=== PATIENT | female | born 1955 | race Caucasian/White ===

== ENCOUNTER 2017-01-23 14:07 | Emergency (ER) | payer OTHER ==
[~2017-01-23] VITALS: Wt 84.8 kg
[~2017-01-23 14:07] MED LIST: ENABLEX7.5 MG PO; HYDROCODONE BIT1 T11 PO; MOTRIN800 MG PO; VICODIN ES 7501 TAB PO
[2017-01-23] MEDS ORDERED: VESICARE5 MG PO (14:40)
[2017-01-23 15:34] LABS: BILIRUBIN NEGATIVE (NEGATIVE); BLOOD NEGATIVE (NEGATIVE); CLARITY SL CLOUDY (CLEAR); COLOR YELLOW (YELLOW); GLUCOSE NEGATIVE (NEGATIVE); KETONE NEGATIVE (NEGATIVE); LEUKO ESTERASE NEGATIVE (NEGATIVE); NITRITE POSITIVE (NEGATIVE); PROTEIN NEGATIVE (NEGATIVE); SPECIFIC GRAVITY 1.025 (1.005-1.030); UROBILINOGEN 0.2 E.U./dl (0.2-1.0)
[2017-01-23 15:37] LABS: BASO # 0.1 10*3/uL (0.0-0.1); BASO % 0.6 % (0.0-1.0); EOS # 0.2 10*3/uL (0.0-0.4); EOS % 1.4 % (1.0-4.0); HEMATOCRIT 38.3 % (37.0-47.0); LYMPH # 1.7 10*3/uL (1.3-4.4); LYMPH % 14.3 % (27.0-41.0); MEAN CELL VOLUME 81.5 fl (81.0-99.0); MEAN CORPUSCULAR HGB 25.5 pg (27.0-31.0); MEAN CORPUSCULAR HGB CONC 31.3 g/dl (33.0-37.0); MEAN PLATELET VOLUME 9.6 fl (9.6-12.3); MONO # 0.6 10*3/uL (0.1-1.0); MONO % 5.3 % (3.0-9.0); NEUT % 78.1 % (47.0-73.0); PLATELET COUNT AUTOMATED 344 10*3/uL (130-400); RED CELL DISTRI WIDTH 16.2 % (0-14.5); WHITE BLOOD COUNT 11.6 10*3/uL (4.8-10.8)
[2017-01-23 15:42] LABS: BACTERIA 3+; EPITHELIAL CELLS 15-20; RBC 0-2 rbc/hpf (0-2); URINE REFLEX COMMENT YES (NO)
[2017-01-23] MEDS ORDERED: CEPHALEXIN500 M1 PO (16:18)
[2017-01-23] MEDS ORDERED: HYDROCODONE BIT1 T11 PO (16:18)
[2017-01-23] MEDS ORDERED: BACTRIM DS 8001 TA1 PO (16:18)
== END 2017-01-23 16:37 | disposition home or self-care (01) ==
LOC: ED 14:07
PROVIDERS: Physician Assistant
DX: N76.2 Acute vulvitis (principal); N30.01 Acute cystitis with hematuria; Z90.49 Acquired absence of other specified parts of digestive tract

== ENCOUNTER → 2017-03-13 | Outpatient (CLI) | payer OTHER ==
[~2017-03-13] MED LIST changes: +BACTRIM DS 8001 TA1 PO; +CEPHALEXIN500 M1 PO; +VESICARE5 MG PO
== END | disposition home or self-care (01) ==
LOC: RAD 10:31
DX: Z13.820 Encounter for screening for osteoporosis (principal); N95.9 Unspecified menopausal and perimenopausal disorder; Z78.0 Asymptomatic menopausal state

== ENCOUNTER → 2017-06-14 | Day surgery (SDC) | payer OTHER ==
[~2017-06-14] VITALS: Ht 162.5 cm; Wt 90.7 kg
[~2017-06-14] MED LIST changes: +SIMVASTATIN10 MG PO
--- NOTE | ~2017-06-14 | O ---
[place], [place] OPERATIVE NOTE NAME: JEFFERY LAO UNIT #: [id number] ROOM: DOCTOR: MILAGROS YOUNGER MD BIRTHDATE: [birth year] DOS: INDICATION: A 62-year-old patient who presented with chief complaint of colonic screening, undergoing investigation. ALLERGIES: No known medication. FAMILY HISTORY: Noncontributory. PAST SURGICAL HISTORY: Cholecystectomy. PAST MEDICAL HISTORY: Hyperlipidemia, hypertension. SOCIAL HISTORY: Nonsmoker, nonalcohol consumer. PROCEDURE: Todays' procedure part of investigation is colonoscopy plus snare polypectomy. PREMEDICATION: Versed and Diprivan. SCOPE: Olympus forward-viewing colonoscope 10L video. REPORT: After putting the patient in the left lateral position and after application of lubricant to the scope, the scope was introduced; thereafter, under direct visualization, advanced through the length of colon without difficulty. Tortuosity of left colon was appreciated, diverticulosis was noticed. Upon polypoid lesion, rectal pouch approximately 10 cm with a snare was polypectomized, site is not bleeding. Photographic series obtained. The patient extubated, tolerated procedure well. IMPRESSION: Rectal pouch peduncular polyp, status post snare polypectomy, diverticulosis of sigmoid colon, tortuosity of sigmoid. PLAN AND DISCUSSION: High fiber diet. ACTIVITY: Ad cathy. FOLLOWUP: Routinely with you in office, p.r.n. visit with us in [facility]. I thank you very much indeed for your kind referral. [place], [place] OPERATIVE NOTE NAME: JEFFERY LAO UNIT #: [id number] ROOM: DOCTOR: MILAGROS YOUNGER MD BIRTHDATE: [birth year] MILAGROS YOUNGER MD CM:OPRECORD:OPERATIVE NOTE [phone] YOU YOUNGER MD 06/14/17 1056 interface
[2017-06-14 08:00] VITALS: BP 132/81
[2017-06-14 08:55] VITALS: BP 114/60
[2017-06-14 09:10] VITALS: BP 129/63
[2017-06-14 09:25] VITALS: BP 128/72
== END | disposition home or self-care (01) ==
LOC: SDC 06-08 10:15
DX: Z12.11 Encounter for screening for malignant neoplasm of colon (principal); E78.5 Hyperlipidemia, unspecified; I10 Essential (primary) hypertension; D12.8 Benign neoplasm of rectum; K57.30 Diverticulosis of large intestine without perforation or abscess without bleeding; K31.89 Other diseases of stomach and duodenum; E78.00 Pure hypercholesterolemia, unspecified; Z90.49 Acquired absence of other specified parts of digestive tract; Z98.890 Other specified postprocedural states; Z80.9 Family history of malignant neoplasm, unspecified

== ENCOUNTER → 2017-06-16 | Outpatient (CLI) | payer OTHER | END | disposition home or self-care (01) | LOC: CT 08:34 | DX: N26.1 Atrophy of kidney (terminal) (principal); K83.8 Other specified diseases of biliary tract; M41.9 Scoliosis, unspecified; Z90.49 Acquired absence of other specified parts of digestive tract ==

== ENCOUNTER → 2020-01-01 | Outpatient (CLI) | payer MEDICARE | END | disposition home or self-care (01) | LOC: MRI 08:15 | DX: M47.896 Other spondylosis, lumbar region (principal); M48.061 Spinal stenosis, lumbar region without neurogenic claudication; M41.86 Other forms of scoliosis, lumbar region ==

== ENCOUNTER → 2020-01-15 | Outpatient (CLI) | payer MEDICARE | END | disposition home or self-care (01) | LOC: RAD 07:47 | DX: M85.89 Other specified disorders of bone density and structure, multiple sites (principal); R06.02 Shortness of breath; Z78.0 Asymptomatic menopausal state ==

== ENCOUNTER → 2020-12-04 | Outpatient (CLI) | payer MEDICARE ==
[2020-12-04 09:24] LABS: BASO # 0.1 10*3/uL (0.0-0.1); BASO % 0.8 % (0.0-1.0); EOS # 0.1 10*3/uL (0.0-0.4); EOS % 1.8 % (1.0-4.0); HEMATOCRIT 43.5 % (37.0-47.0); LYMPH # 2.4 10*3/uL (1.3-4.4); LYMPH % 36.5 % (27.0-41.0); MEAN CELL VOLUME 83.7 fl (81.0-99.0); MEAN CORPUSCULAR HGB 25.2 pg (27.0-31.0); MEAN CORPUSCULAR HGB CONC 30.1 g/dl (33.0-37.0); MEAN PLATELET VOLUME 9.9 fl (9.6-12.3); MONO # 0.4 10*3/uL (0.1-1.0); MONO % 5.7 % (3.0-9.0); NEUT # 3.6 10*3/uL (2.3-7.9); NEUT % 54.9 % (47.0-73.0); PLATELET COUNT AUTOMATED 303 10*3/uL (130-400); WHITE BLOOD COUNT 6.5 10*3/uL (4.8-10.8)
[2020-12-04 09:41] LABS: ALBUMIN 3.7 gm/dl (3.1-4.5); ALKALINE PHOSPHATASE 155 U/L (45-117); BUN 18 mg/dl (7-24); CHLORIDE 107 mmol/L (98-107); CHOLESTEROL 213 mg/dL (<200); CREATININE 1.01 mg/dL (0.55-1.02); HDL CHOLESTEROL 48 mg/dl (40-60); LDL CHOLESTEROL 117 mg/dL (9-159); POTASSIUM 4.1 mmol/L (3.5-5.1); SGOT/AST 19 IU/L (3-35); SGPT/ALT 29 U/L (12-78); SODIUM 139 mmol/L (136-145); TRIGLYCERIDES 240 mg/dl (<150); VLDL CHOLESTEROL 48 mg/dL (6-40)
[2020-12-04 09:42] LABS: FREE T4 1.11 ng/dl (0.76-1.46)
[2020-12-04 10:55] LABS: VITAMIN D, 25-HYDROXY 65.4 ng/mL (30-100)
== END | disposition home or self-care (01) ==
LOC: LAB 08:49
PROVIDERS: ATTEND Internal Medicine
DX: Z13.89 Encounter for screening for other disorder (principal); N32.81 Overactive bladder; E78.2 Mixed hyperlipidemia; R79.82 Elevated C-reactive protein (CRP); E55.9 Vitamin D deficiency, unspecified; R74.8 Abnormal levels of other serum enzymes; R53.81 Other malaise

== ENCOUNTER → 2022-12-13 | Outpatient (CLI) | payer MEDICARE ==
[2022-12-13 10:37] LABS: BASO # 0.1 10*3/uL (0.0-0.1); BASO % 0.9 % (0.0-1.0); EOS # 0.1 10*3/uL (0.0-0.4); EOS % 1.2 % (1.0-4.0); HEMATOCRIT 44.8 % (37.0-47.0); LYMPH # 1.8 10*3/uL (1.3-4.4); MEAN CELL VOLUME 83.6 fl (81.0-99.0); MEAN CORPUSCULAR HGB 25.6 pg (27.0-31.0); MEAN CORPUSCULAR HGB CONC 30.6 g/dl (33.0-37.0); MEAN PLATELET VOLUME 9.8 fl (9.6-12.3); MONO # 0.4 10*3/uL (0.1-1.0); MONO % 6.3 % (3.0-9.0); NEUT # 4.5 10*3/uL (2.3-7.9); NEUT % 65.3 % (47.0-73.0); PLATELET COUNT AUTOMATED 291 10*3/uL (130-400); RED BLOOD COUNT 5.36 10*6/uL (4.10-5.10); RED CELL DISTRI WIDTH 15.4 % (0-14.5); WHITE BLOOD COUNT 6.9 10*3/uL (4.8-10.8)
[2022-12-13 10:55] LABS: ALKALINE PHOSPHATASE 151 U/L (46-116); BUN 17 mg/dl (9-23); CHLORIDE 102 mmol/L (98-107); CHOLESTEROL 188 mg/dL (<200); FREE T4 1.34 ng/dl (0.89-1.76); LDL CHOLESTEROL 110 mg/dL (9-159); POTASSIUM 4.3 mmol/L (3.4-5.1); SGPT/ALT 29 U/L (10-49); T3 UPTAKE 24.7 % (22.4-36.7); THYROID STIM HORMONE (HS) 2.383 uIU/ml (0.550-4.780); TOTAL PROTEIN 7.6 gm/dL (6.0-8.0); TRIGLYCERIDES 175 mg/dl (<150)
[2022-12-13 12:05] LABS: VITAMIN D, 25-HYDROXY 79.5 ng/mL (30-100)
== END | disposition home or self-care (01) ==
LOC: LAB 10:16
PROVIDERS: ATTEND Internal Medicine
DX: E78.2 Mixed hyperlipidemia (principal); Z13.89 Encounter for screening for other disorder; Z13.0 Encounter for screening for diseases of the blood and blood-forming organs and certain disorders involving the immune mechanism; Z13.1 Encounter for screening for diabetes mellitus; Z13.6 Encounter for screening for cardiovascular disorders; Z13.220 Encounter for screening for lipoid disorders; E55.9 Vitamin D deficiency, unspecified

== ENCOUNTER → 2025-07-11 | Outpatient (CLI) | payer MEDICARE | END | disposition home or self-care (01) | LOC: RAD 08:58 | PROVIDERS: ATTEND Internal Medicine | DX: M81.0 Age-related osteoporosis without current pathological fracture (principal) ==